=== PATIENT | female | born 1950 | race Hispanic/Latino ===

== ENCOUNTER 2021-11-16 07:00 | Day surgery (SDC) | payer OTHER ==
[2021-11-14 10:29] LABS: BASOPHILS % (AUTO) 0.6 % (0.0-5.0); EOSINOPHILS % (AUTO) 4.2 % (0.0-8.0); HEMATOCRIT 39.2 % (36-48); LYMPHOCYTES % (AUTO) 35.2 % (21.0-51.0); MEAN CORPUSCULAR HEMOGLOBIN 31.1 pg (27.0-33.0); MEAN CORPUSCULAR HGB CONC 33.9 g/dL (32.0-36.0); MEAN CORPUSCULAR VOLUME 91.6 fL (79-99); NEUTROPHILS % (AUTO) 50.7 % (40.0-77.0); PLATELET COUNT (AUTO) 353 K/uL (130-400); RED BLOOD CELL COUNT(AUTO) 4.28 MIL/uL (4.00-5.50); RED CELL DISTRIBUTION WIDTH 12.9 % (11.0-15.5); WHITE BLOOD COUNT (AUTO) 7.1 K/uL (4.8-10.8)
[2021-11-14 10:41] LABS: CREATININE 0.8 mg/dL (0.5-1.5); POTASSIUM 4.1 mmol/L (3.5-5.1)
[2021-11-15 12:21] VITALS: BP 142/81
[~2021-11-16] VITALS: Ht 157.5 cm; Wt 74.5 kg
[2021-11-16] VITALS (10 sets, daily range): BP systolic 113–138; BP diastolic 72–78
[2021-11-16] MEDS: CEFAZOLIN SODIUM 1 GM VIAL IVP SCH ×2 (05:00→09:00)
[~2021-11-16 07:00] MED LIST: HYDR25TA PO; IRBE75TA9 PO; SERT-439 PO
[2021-11-16] MEDS ORDERED: LACTATED RINGERS 1000ML 1,000 ML IV ONE (07:02)
[2021-11-16] MEDS ORDERED: BUPIVACAINE/PF 0.5% 10ML VIAL ONE (07:24)
[2021-11-16] MEDS ORDERED: CEFAZOLIN SODIUM 1 GM VIAL ONE (07:24)
[2021-11-16] MEDS ORDERED: PROPOFOL 10 MG/ML 20ML VIAL IV ONE (08:50)
[2021-11-16] MEDS ORDERED: SUCCINYLCHOLINE 200MG/10ML SYR ONE (08:50)
[2021-11-16] MEDS ORDERED: MIDAZOLAM HCL 1 MG/ML 2ML VIAL ONE ×2 (08:50→09:18)
[2021-11-16] MEDS ORDERED: FENTANYL CITRATE PF 50 MCG/1 ML 2ML VIAL ONE (08:51)
[2021-11-16] MEDS ORDERED: LIDOCAINE HCL MDV 0.5% 50ML VIAL IJ ONE (09:00)
[2021-11-16] MEDS ORDERED: LIDOCAINE HCL-MPF 1% 2ML VIAL ONE ×2 (09:01→09:22)
[2021-11-16] MEDS ORDERED: LIDOCAINE HCL MPF 1% 5ML VIAL ONE (09:01)
[2021-11-16] MEDS ORDERED: ACET-66 PO (09:57)
[2021-11-16] MEDS ORDERED: TRAM50TA4 PO (09:57)
[2021-11-16] MEDS ORDERED: CEPH500B PO (09:57)
== END 2021-11-16 11:00 | disposition home or self-care (01) ==
LOC: DAH 07:00
PROVIDERS: ATTEND Orthopaedic Surgery
DX: M65.342 Trigger finger, left ring finger (principal); M16.11 Unilateral primary osteoarthritis, right hip; I12.9 Hypertensive chronic kidney disease with stage 1 through stage 4 chronic kidney disease, or unspecified chronic kidney disease; N18.9 Chronic kidney disease, unspecified; F32.9 Major depressive disorder, single episode, unspecified; Z72.89 Other problems related to lifestyle; Z82.49 Family history of ischemic heart disease and other diseases of the circulatory system; Z98.890 Other specified postprocedural states; Z90.89 Acquired absence of other organs; Z88.6 Allergy status to analgesic agent
CPT/HCPCS: 80048; 85025; 87426; 36415; 93005; 26055; A4663; J7120; J3010; J0690 ×2; J0330; J3490 ×4; J2250 ×2; A6445; A6223; A4649; A4930; A4215; A4223; A4222; A4221; J2704

== ENCOUNTER 2021-12-08 06:47 | Day surgery (SDC) | payer OTHER ==
[2021-12-06 10:23] LABS: BASOPHILS % (AUTO) 0.8 % (0.0-5.0); EOSINOPHILS % (AUTO) 5.1 % (0.0-8.0); HEMATOCRIT 41.1 % (36-48); LYMPHOCYTES % (AUTO) 38.1 % (21.0-51.0); MEAN CORPUSCULAR HEMOGLOBIN 31.1 pg (27.0-33.0); MEAN CORPUSCULAR HGB CONC 33.6 g/dL (32.0-36.0); MEAN CORPUSCULAR VOLUME 92.6 fL (79-99); MONOCYTES % (AUTO) 8.5 % (3.0-13.0); NEUTROPHILS % (AUTO) 47.3 % (40.0-77.0); PLATELET COUNT (AUTO) 332 K/uL (130-400); RED BLOOD CELL COUNT(AUTO) 4.44 MIL/uL (4.00-5.50); RED CELL DISTRIBUTION WIDTH 12.9 % (11.0-15.5); WHITE BLOOD COUNT (AUTO) 6.2 K/uL (4.8-10.8)
[2021-12-06 10:32] LABS: ALBUMIN 3.8 g/dL (3.5-5.0); CARBON DIOXIDE 34 mmol/L (21-32); CHLORIDE 101 mmol/L (101-111); CREATININE 0.8 mg/dL (0.5-1.5); GLOMERULAR FILTR. RATE CALC 75 mL/min (>60); GLUCOSE,RANDOM 96 mg/dL (70-105); POTASSIUM 4.5 mmol/L (3.5-5.1); SODIUM SERUM 138 mmol/L (136-145); UREA NITROGEN, BLOOD 11 mg/dL (7-18)
[2021-12-06 10:41] LABS: CRP QUANTITATIVE < 2.00 mg/L (0.00-9.0)
[2021-12-07 12:50] VITALS: BP 137/82
[2021-12-08] VITALS (20 sets, daily range): BP systolic 100–148; BP diastolic 43–83
[~2021-12-08] VITALS: Ht 157.5 cm; Wt 75.0 kg
[~2021-12-08 06:47] MED LIST changes: +CEFAZOLIN SODIUM 1 GM VIAL IVP SCH
[2021-12-08] MEDS ORDERED: LACTATED RINGERS 1000ML 1,000 ML IV ONE (07:40)
[2021-12-08] MEDS ORDERED: FAMOTIDINE 20MG VIAL IV ONE (09:19)
[2021-12-08] MEDS ORDERED: PROPOFOL 10 MG/ML 20ML VIAL IV ONE (09:21)
[2021-12-08] MEDS ORDERED: GLYCOPYRROLATE 1 MG/5 ML SYRINGE ONE (09:21)
[2021-12-08] MEDS ORDERED: PHENYLEPHRINE HCL 10 MG/ML 1ML VIAL IV ONE (09:21)
[2021-12-08] MEDS ORDERED: LIDOCAINE PF 100MG/5ML (2%) SYRINGE 5ML ONE (09:21)
[2021-12-08] MEDS ORDERED: FENTANYL CITRATE PF 50 MCG/1 ML 2ML VIAL ONE ×3 (09:22→12:14)
[2021-12-08] MEDS ORDERED: ROCURONIUM 10MG/1ML SYR 10 MG/ML ML ONE (09:22)
[2021-12-08] MEDS ORDERED: ONDANSETRON 4MG INJ ONE ×2 (09:25→11:33)
[2021-12-08] MEDS ORDERED: BUPIVACAINE/PF 0.25% 30ML VIAL IJ ONE ×2 (10:03→11:29)
[2021-12-08] MEDS ORDERED: MIDAZOLAM HCL 1 MG/ML 2ML VIAL ONE (10:22)
[2021-12-08] MEDS ORDERED: CEFAZOLIN SODIUM 2 GM VIAL IV ONE (10:24)
[2021-12-08] MEDS ORDERED: NEOSTIGMINE 5MG/5ML SYR IV ONE (11:34)
[2021-12-08] MEDS ORDERED: TRAM50TA4 PO (11:41)
[2021-12-08] MEDS ORDERED: MEPERIDINE-PF 25 MG/ML SYG ONE ×2 (11:54→12:02)
== END 2021-12-08 14:15 | disposition home or self-care (01) ==
LOC: DAH 06:47
PROVIDERS: ATTEND Student in an Organized Health Care Education/Training Program
DX: M23.321 Other meniscus derangements, posterior horn of medial meniscus, right knee (principal); M67.51 Plica syndrome, right knee; M22.41 Chondromalacia patellae, right knee; M65.861 Other synovitis and tenosynovitis, right lower leg; M17.11 Unilateral primary osteoarthritis, right knee; M23.41 Loose body in knee, right knee; K21.9 Gastro-esophageal reflux disease without esophagitis; F32.9 Major depressive disorder, single episode, unspecified; Z79.899 Other long term (current) drug therapy; Z88.6 Allergy status to analgesic agent; Z98.890 Other specified postprocedural states; Z90.710 Acquired absence of both cervix and uterus; Z90.89 Acquired absence of other organs
CPT/HCPCS: 82040; 80048; 85025; 84134; 86140; 87426; 36415; 93005; 29881; J7120 ×2; A4649 ×2; J0690 ×2; J3490 ×4; J3010 ×3; J2710; J2001; J2250; J2704; J2405 ×2; J2175 ×2; J2370; A6223; A5120; A4215; A4223; A4222; A4221; A4663; A6450